=== PATIENT | male | born 1990 | race Caucasian/White ===

== ENCOUNTER 2021-07-19 13:04 | Emergency (ER) | payer OTHER, SELFPAY ==
--- NOTE | ~2021-07-19 | XR_ITS ---
EXAMINATION: XR FINGER, LEFT CLINICAL INFORMATION: injury to middle phalanx of 2nd digit COMPARISON: None TECHNIQUE: PA, lateral, and oblique views of the left index finger. FINDINGS: There is a soft tissue ulceration at the dorsal and radial margins of the index finger at the level of the proximal phalanx. Soft tissues are swollen in this region. No radiodense foreign bodies. Underlying bone is intact. Joint spaces appear normal. XR/XR finger LT min 2V IMPRESSION: Index finger laceration at the level of the proximal phalanx. No acute osseous findings or radiodense foreign bodies.
[2021-07-19 14:26] VITALS: PULSE 74; RESP 18; TEMP 36.6; O2SAT 98; BMI 25.7
--- NOTE | 2021-07-19 18:33 | ED.WOUNDLAC ---
HPI - Wound/Laceration General Chief Complaint: Wound/Laceration <KARIE Mccarty - Last Filed: 07/19/21 19:27> Stated Complaint: finger lac <KARIE Mccarty - Last Filed: 07/19/21 19:27> Time Seen by Provider: 07/19/21 18:33 <KARIE Mccarty - Last Filed: 07/19/21 19:27> Source: patient <KARIE Mccarty Last Filed: 07/19/21 19:27> Mode of arrival: ambulatory <KARIE Mccarty - Last Filed: 07/19/21 19:27> Limitations: no limitations <KARIE Mccarty - Last Filed: 07/19/21 19:27> History of Present Illness HPI narrative: 30-year-old male who was using a offline cutter a work-in who is right-handed slipped and offline cutter to cut the dorsum of his left index finger between the MCP and PIP joint Patient is not up-to-date on his tetanus This injury happened 6 hours ago, and wound distal bleeding <KARIE Mccarty - Last Filed: 07/19/21 19:27> Onset (ago): hour(s) (6) <KARIE Mccarty - Last Filed: 07/19/21 19:27> Extremity Location: left: hand <KARIE Mccarty - Last Filed: 07/19/21 19:27> Place: work <KARIE Mccarty - Last Filed: 07/19/21 19:27> Patient tetanus UTD: No <KARIE Mccarty - Last Filed: 07/19/21 19:27> Context: accidental <KARIE Mccarty - Last Filed: 07/19/21 19:27> Associated symptoms: pain <KARIE Mccarty - Last Filed: 07/19/21 19:27> Treatments prior to arrival: bandage <KARIE Mccarty Last Filed: 07/19/21 19:27> Related Data Allergies/Adverse Reactions: Allergies Allergy/AdvReac Type Severity Reaction Status Date / Time No Known Allergies Allergy Verified 07/19/21 18:35 <KARIE Mccarty - Last Filed: 07/19/21 19:27> Review of Systems Constitutional: Constitutional: Denies body ache(s), Denies chills, Denies fatigue, Denies fever(s), Denies headache(s), Denies malaise and Denies weakness <KARIE Mccarty Last Filed: 07/19/21 19:27> Eyes: Eyes: Denies diplopia <KARIE Mccarty Last Filed: 07/19/21 19:27> ENT: Denies vertigo, Denies dizziness, Denies otalgia, Denies headache(s), Denies mouth pain, Denies post nasal drip, Denies sinus pain, Denies sinus pressure, Denies sore throat and Denies throat swelling <KARIE Mccarty Last Filed: 07/19/21 19:27> Cardiovascular: Cardiovascular: Denies chest pain, Denies syncope, Denies leg edema, Denies lightheadedness, Denies Loss of Consciousness, Denies palpitations and Denies dyspnea <KARIE Mccarty Last Filed: 07/19/21 19:27> Respiratory: Respiratory: Denies chest congestion, Denies cough and Denies dyspnea <KARIE Mccarty Last Filed: 07/19/21 19:27> Gastrointestinal: Gastrointestinal: Reports abdominal pain, Denies hematochezia, Denies constipation, Denies diarrhea and Denies vomiting <KARIE Mccarty Last Filed: 07/19/21 19:27> Musculoskeletal: Musculoskeletal: Denies arthralgias, Denies joint swelling, Denies numbness and Denies tingling <KARIE Mccarty Last Filed: 07/19/21 19:27> Integumentary/Breasts: Comments: Laceration to left index finger <KARIE Mccarty Last Filed: 07/19/21 19:27> Neurologic: Denies confusion, Denies vertigo, Denies dizziness, Denies syncope, Denies headache(s), Denies numbness, Denies tingling and Denies weakness <KARIE Mccarty Last Filed: 07/19/21 19:27> Psychiatric: Psychiatric: Denies anxiety, Denies confusion and Denies depression <KARIE Mccarty Last Filed: 07/19/21 19:27> Endocrine: Endocrine: Denies fatigue and Denies palpitations <KARIE Mccarty - Last Filed: 07/19/21 19:27> Allergic/Immunologic: Allergic/Immunologic: Denies throat swelling <KARIE Mccarty - Last Filed: 07/19/21 19:27> PMFSH Social History Social History: Social History Advance Directives: No Advance Directives Information Provided: No <KARIE Mccarty - Last Filed: 07/19/21 19:27> Physical Exam Vital Signs: Vital Signs: Last Vital Signs Temp 98 F 07/19/21 14:26 Pulse 74 07/19/21 14:26 Resp 18 07/19/21 14:26 Pulse Ox 98 07/19/21 14:26 BMI result Body Mass Index 25.7 <KARIE Mccarty - Last Filed: 07/19/21 19:27> Vital Signs: Last Vital Signs Temp 98 F 07/19/21 14:26 Pulse 74 07/19/21 14:26 Resp 18 07/19/21 14:26 Pulse Ox 98 07/19/21 14:26 BMI result Body Mass Index 25.7 <KARIE Tanner - Last Filed: 07/19/21 20:14> Const: General: No confusion <KARIE Mccarty - Last Filed: 07/19/21 19:27> Nutritional Appearance: well nourished <KARIE Mccarty - Last Filed: 07/19/21 19:27> Orientation/consciousness: No confusion <KARIE Mccarty - Last Filed: 07/19/21 19:27> Limitations: no limitations <KARIE Mccarty Last Filed: 07/19/21 19:27> Eyes: Pupils: Equal, round and reactive pupils present <KARIE Mccarty Last Filed: 07/19/21 19:27> Neck: Neck: Yes full ROM, Yes no lymphadenopathy and Yes supple <KARIE Mccarty Last Filed: 07/19/21 19:27> Resp: Effort & Inspection: normal respiratory effort and able to speak in complete sentences <KARIE Mccarty - Last Filed: 07/19/21 19:27> Auscultation: clear to auscultation bilaterally, no crackles, no rales, no rhonchi and no wheezes <KARIE Mccarty Last Filed: 07/19/21 19:27> Cardio: Rate: regular rate <Christianne Tony [facility] Last Filed: 07/19/21 19:27> Rhythm: regular rhythm <Christianne Tony [facility] Last Filed: 07/19/21 19:27> Heart sounds: S1 normal heart sound present and S2 normal heart sound present <Christianne Tony [facility] Last Filed: 07/19/21 19:27> Skin: Trauma: laceration left dorsal 2nd finger <KARIE Mccarty Last Filed: 07/19/21 19:27> Neuro: General: No confusion <Christianne Tony [facility] Last Filed: 07/19/21 19:27> Cranial nerves: Yes Equal, round and reactive pupils present <KARIE Mccarty Last Filed: 07/19/21 19:27> Extrem: Left upper extremity: full ROM, normal capillary refill, no joint enlargement and hand Details: normal capillary refill, neuromotor exam normal, neurosensory exam normal, tendon exam normal Location: of the 2nd digit Details: extensor tendon, flexor digitorum profundus and flexor digitorum superficialis and normal ROM of fingers; No no edema <Christianne Tony [facility] Last Filed: 07/19/21 19:27> Psych: Appearance: grossly normal <KARIE Mccarty Last Filed: 07/19/21 19:27> Affect: normal affect <KARIE Mccarty Last Filed: 07/19/21 19:27> Attitude: cooperative <KARIE Mccarty Last Filed: 07/19/21 19:27> Thought process: Normal thought process present <KARIE Mccarty Last Filed: 07/19/21 19:27> Course Course Course Narrative: 30-year-old male presents for laceration to dorsum of left index finger from a offline cutter. Gave pain medication, getting x-ray, giving tetanus vaccination <KARIE Mccarty Last Filed: 07/19/21 19:27> Reevaluation(s) Reevaluation #1: Finger x-ray shows no bony involvement per my eyes. Awaiting definitive radiology read before discharge. Patient provided with wound dressing, finger splint, instructions for wound care, told to get his stitches out in 1 week, infection return precautions given. Signed patient out to KARIE Tanner, pending XR read. If bony involvement, keflex, f/u with Hand Surgery <KARIE Mccarty - Last Filed: 07/19/21 19:27> Reevaluation #2: No bony involvement on x-ray. Wound care discussed with patient. Patient stable for DC home. <KARIE Tanner - Last Filed: 07/19/21 20:14> Procedures Laceration Laceration 1: Site: hand <KARIE Mccarty - Last Filed: 07/19/21 19:27> Side (If applicable): left <KARIE Mccarty - Last Filed: 07/19/21 19:27> Size (cm): 1 <KARIE Mccarty - Last Filed: 07/19/21 19:27> Description: linear <KARIE Mccarty - Last Filed: 07/19/21 19:27> Depth: simple, single layer <KARIE Mccarty - Last Filed: 07/19/21 19:27> Local Anesthetic: lidocaine 1% <KARIE Mccarty Last Filed: 07/19/21 19:27> Amount of anesthesia used (mL): 3 <KARIE Mccarty - Last Filed: 07/19/21 19:27> Pre-repair: wound explored, irrigated extensively and deep structures intact <KARIE Mccarty - Last Filed: 07/19/21 19:27> Skin layer closed with: vicryl <KARIE Mccarty - Last Filed: 07/19/21 19:27> Size (cm): 4-0 <KARIE Mccarty - Last Filed: 07/19/21 19:27> Number of sutures: 3 <KARIE Mccarty - Last Filed: 07/19/21 19:27> Technique: simple, interrupted <KARIE Mccarty Last Filed: 07/19/21 19:27> Discharge Plan Discharge Clinical Impression: Laceration <KARIE Mccarty - Last Filed: 07/19/21 19:27> Patient Disposition: Home, Self-Care <KARIE Mccarty Last Filed: 07/19/21 19:27> Instructions: Finger Laceration (ED) <KARIE Mccarty - Last Filed: 07/19/21 19:27> Additional Instructions: Please alternate Tylenol and ibuprofen for pain. Take 1 or the other every 4 hours. For example, at midnight take 1000 mg of Tylenol, then at 4:00 a.m. take 800 mg ibuprofen, at 8:00 a.m. take 1000 mg of Tylenol, at noon take 800 mg of ibuprofen, at 4:00 p.m. take 1000 mg of Tylenol, at 8:00 p.m. take 800 mg of ibuprofen. Do not exceed 3000 mg of Tylenol in 24 hours. This method is proven to be as effective as an opioid for pain control. Please leave the dressing and finger splint in place until tomorrow. At that time you can take it off, wash with soap and water, gently pat dry, put a thin layer of bacitracin, nonstick dressing, and finger splint. Do this for the next 4 days. After that, you can wash with soap and water, apply Band-Aid. In 7 days, on July 26, please return to your PCP or urgent care to get THREE stitches removed If you have redness, swelling, pain, pus, warmth around the wound site, please return to be seen, because these are signs of infection <KARIE Mccarty Last Filed: 07/19/21 19:27>
[2021-07-19] MEDS: Diphth,Pertus(ACell),Tet Adult 0.5 ML SYRINGE IM (19:14)
[2021-07-19] MEDS: Lidocaine HCl 1 % 20 ML VIAL 10 ML INFILTRATI (19:16)
== END 2021-07-19 20:18 | disposition home or self-care (01) ==
PROVIDERS: Emergency Provider Emergency Medicine Emergency Medical Services
DX: S61.211A Laceration without foreign body of left index finger without damage to nail, initial encounter (principal); S60.511A Abrasion of right hand, initial encounter; M79.645 Pain in left finger(s); W26.0XXA Contact with knife, initial encounter; Y93.9 Activity, unspecified; Y92.9 Unspecified place or not applicable; Y99.9 Unspecified external cause status
CPT/HCPCS: 12001; 73140; 90471; 90715; 99284